=== PATIENT | female | born 1965 | race Caucasian/White ===

== ENCOUNTER 2018-02-18 00:21 | Emergency (ER) | payer OTHER ==
[~2018-02-18] VITALS: Ht 154.9 cm; Wt 78.5 kg
[~2018-02-18 00:21] MED LIST: ASPIR 8181 M1 PO; LEVOTHYROXINE 0.1 MG PO; PINDOLOL5 MG PO; POTASSIUM20 PO; PRILOSEC 20 MG20 MG PO; SERTRALINE HCL50 MG PO; VERAPAMIL ER120 MG PO; ZESTRIL2.5 MG PO
[2018-02-18] MEDS ORDERED: KLOR-CON 1010 MEQ PO (00:30)
[2018-02-18 01:06] LABS: ABSOLUTE BASOPHILS 0.1 thou/uL (0.0-0.2); ABSOLUTE EOSINOPHILS 0.5 thou/uL (0.0-0.7); ABSOLUTE LYMPHOCYTES 3.4 thou/uL (0.8-5.3); ABSOLUTE MONOCYTES 0.9 thou/uL (0.0-1.2); ABSOLUTE NEUTROPHILS 5.9 thou/uL (1.6-8.1); BASOPHILS 0.7 %; HEMATOCRIT 44.3 % (37.0-47.0); HEMOGLOBIN 15.1 gm/dL (12.0-15.0); LYMPHOCYTES 31.5 %; MCH 29.3 pg (26.0-34.0); MCV 86.3 fL (80.0-100.0); MONOCYTES 8.6 %; MPV 9.6 fl. (7.2-11.1); NUCLEATED RBCS 0 /100WBC; PLATELET COUNT* 250 thou/uL (150-400); POLYS 54.2 %; RBC 5.14 mil/uL (4.20-5.00); RDW-CV 13.1 % (10.5-14.5); WBC 10.8 thou/uL (4.0-11.0)
[2018-02-18 01:10] LABS: ANION GAP 5 mmol/L (7-16); BUN 21 mg/dL (7-18); CALCIUM 9.3 mg/dL (8.5-10.1); CHLORIDE 100 mmol/L (98-107); CO2 29 mmol/L (21-32); CREATININE 0.9 mg/dL (0.6-1.3); GLUCOSE 113 mg/dL (70-99); POTASSIUM 3.9 mmol/L (3.5-5.1); SODIUM 134 mmol/L (136-145)
[2018-02-18 01:16] LABS: ALBUMIN 4.4 g/dL (3.4-5.0); ALKALINE PHOSPHATASE 78 U/L (46-116); LIPASE 299 U/L (73-393); SGOT 16 U/L (15-37); SGPT 24 U/L (30-65); TOTAL BILIRUBIN 0.3 mg/dL (<0.1-1.0); TROPONIN-I LEVEL <0.06 ng/mL (<0.06)
[2018-02-18 01:21] LABS: APTT 28.6 Seconds (25.0-31.3); INR 1.1; PROTIME 11.2 Seconds (9.20-11.50)
[2018-02-18] MEDS ORDERED: CARAFATE1 GM PO (03:54)
[2018-02-18 04:23] VITALS: BP 109/59
--- NOTE | 2018-02-18 16:42 | EKG ---
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
== END 2018-02-18 04:25 | disposition home or self-care (01) ==
LOC: M.ERS 00:21
PROVIDERS: Personal Emergency Response Attendant
DX: K21.9 Gastro-esophageal reflux disease without esophagitis (principal); I10 Essential (primary) hypertension; N80.9 Endometriosis, unspecified; K58.9 Irritable bowel syndrome, unspecified; Z88.0 Allergy status to penicillin; Z88.2 Allergy status to sulfonamides; Z88.5 Allergy status to narcotic agent

== ENCOUNTER 2018-07-16 18:08 | Emergency (ER) | payer BC ==
[~2018-07-16] VITALS: Ht 154.9 cm; Wt 79.4 kg
[~2018-07-16 18:08] MED LIST changes: +CARAFATE1 GM PO; +KLOR-CON 1010 MEQ PO
[2018-07-16] MEDS ORDERED: ROBAXIN500 MG PO (19:16)
[2018-07-16 20:55] VITALS: BP 159/87
== END 2018-07-16 20:55 | disposition home or self-care (01) ==
LOC: M.ERS 18:08
DX: S93.491A Sprain of other ligament of right ankle, initial encounter (principal); N80.9 Endometriosis, unspecified; I10 Essential (primary) hypertension; K58.9 Irritable bowel syndrome, unspecified; Z88.0 Allergy status to penicillin; Z88.2 Allergy status to sulfonamides; Z88.5 Allergy status to narcotic agent; W10.9XXA Fall (on) (from) unspecified stairs and steps, initial encounter; Y92.89 Other specified places as the place of occurrence of the external cause; Y93.89 Activity, other specified; Y99.8 Other external cause status